=== PATIENT | female | born 1965 | race Caucasian/White ===

== ENCOUNTER 2021-08-15 10:31 | Emergency (ER) | payer OTHER, BC ==
--- NOTE | 2021-08-15 12:19 | EDM.PDOC ---
ED HPI GENERAL MEDICAL PROBLEM - General Chief Complaint: Lower Extremity Injury/Pain Stated Complaint: KNEE HURT AT WORK Time Seen by Provider: 08/15/21 10:42 Source of Information: Reports: Patient History Limitations: Reports: No Limitations - History of Present Illness INITIAL COMMENTS - FREE TEXT/NARRATIVE: HISTORY AND PHYSICAL: History of present illness: Patient is a 56-year-old female who presents emergency room today with concern of right knee injury that occurred yesterday while working. Patient states that she went outside and saw that there was a piece of cardboard on the ground that she was going to waste picker with her on the garbage. Patient states that she held onto the garbage in order to bend over and waste picker the piece of cardboard and states that she did not realize that the garbage was on wheels and was not stationary. Patient states that the garbage began moving and it caused her to slip and states that she landed directly on her right knee on the ground. Patient states that she did not injure any thing else and states that she did not hit her head or lose consciousness. Patient states that since then, she has hardly been able to bear weight on the knee due to pain. States that she has not taken any medications for her symptoms. Denies any other symptoms or concerns. Patient denies fever, chills, chest pain, shortness of breath, or cough. Denies headache, neck stiff ness, change in vision, syncope, or near syncope. Denies nausea, vomiting, abdominal pain, diarrhea, constipation, or dysuria. Has not noted any blood in urine or stool. Patient has been eating and drinking appropriately. Review of systems: As per history of present illness and below otherwise all systems reviewed and negative. Past medical history: As per history of present illness and as reviewed below otherwise noncontributory. Surgical history: As per history of present illness and as reviewed below otherwise noncontributory. Social history: See social history for further information Family history: As per history of present illness and as reviewed below otherwise noncontributory. Physical exam: General: Patient is alert, oriented, and in no acute distress. Patient sitting comfortably on exam table. Vitals stable and reviewed by me. HEENT: Atraumatic, normocephalic, pupils equal and reactive bilaterally, negative for conjunctival pallor or scleral icterus, mucous membranes moist, throat clear, neck supple, nontender, trachea midline. No drooling or trismus noted. No meningeal signs. No hot potato voice noted. Lungs: Clear to auscultation, breath sounds equal bilaterally, chest nontender. Heart: S1S2, regular rate and rhythm without overt murmur Abdomen: Soft, nondistended, nontender. Negative for masses or hepatosplenomegaly. Negative for costovertebral tenderness. Pelvis: Stable nontender. Genitourinary: Deferred. Rectal: Deferred. Skin: Intact, warm, dry. No lesions or rashes noted. Extremities: The right knee is moderately edematous without erythema, ecchymosis, or increase in warmth. Patient does have limited range of motion of the right knee due to pain. Patient does have full range of motion of the remainder right lower extremity. Dorsalis pedis posterior tibial pulses are grossly intact of the right lower extremity with capillary refill less than 2 seconds. All compartments are soft of the right lower extremity. Intact sensation to light and deep touch of the complete right lower extremity. Otherwise, atraumatic, negative for cords or calf pain. Neurovascular unremarkable. Neuro: Awake, alert, oriented. Cranial nerves II through XII unremarkable. Cerebellum unremarkable. Motor and sensory unremarkable throughout. Exam nonfocal. Medical Decision Making: Signs and symptoms that were prompt return to the ED thoroughly discussed with patient. Discussed importance for follow-up with an orthopedic provider. Voices understanding and is agreeable to plan of care. Denies any further questions or concerns at this time. Diagnostics: Right knee x-ray Therapeutics: Knee immobilizer and crutches Prescription: None Impression: Right knee injury Plan: 1. Rest, ice, elevate the affected extremity. You can apply ice 15 minutes on, 15 minutes off. Use the knee immobilizer and crutches until follow-up with an orthopedic provider. 2. Tylenol and/or Ibuprofen as directed for pain management or discomfort. 3. Follow up with the Orthopedic provider as discussed. Return to the ED as needed and as discussed. Definitive disposition and diagnosis as appropriate pending reevaluation and review of above. Right Knee Pain Score (Numeric/FACES): 10 - Related Data Allergies Allergy/AdvReac Type Severity Reaction Status Date / Time ACEINHIBITORS Allergy Cough Verified 03/16/14 08:28 [GARCIA Inhibitors] Sulfa (Sulfonamide Allergy Rash Verified 03/16/14 08:28 Antibiotics) Past Medical History Cardiovascular History: Reports: Hypertension Other Cardiovascular History: High blood pressure/heart problems Genitourinary History: Reports: Renal Disease Endocrine/Metabolic History: Reports: Diabetes, Type II - Infectious Disease History Infectious Disease History: Reports: Chicken Pox Social & Family History - Family History Family Medical History: No Pertinent Family History - Tobacco Use Tobacco Use Status *Q: Current Every Day Tobacco User Years of Tobacco use: 20 Packs/Tins Daily: 1 - Caffeine Use Caffeine Use: Reports: Coffee, Soda - Recreational Drug Use Recreational Drug Use: No Review of Systems - Review of Systems Review Of Systems: Comprehensive ROS is negative, except as noted in HPI. ED EXAM, GENERAL - Physical Exam Exam: See Below (See dictation) Course - Vital Signs Last Recorded V/S: Last Vital Signs Temp 97.3 F 08/15/21 11:49 Pulse 91 08/15/21 11:49 Resp 18 08/15/21 11:49 BP 176/68 H 08/15/21 11:49 Pulse Ox 95 08/15/21 11:49 - Orders/Labs/Meds Orders: Active Orders 24 hr Category Date Time Status DME for Discharge [COMM] Stat Oth 08/15/21 13:03 Ordered Departure - Departure Time of Disposition: 13:04 Disposition: Home, Self-Care 01 Clinical Impression: Knee injury - Discharge Information Referrals: Zuly Garcia NP [Primary Care Provider] - Forms: ED Department Discharge Additional Instructions: The following information is given to patients seen in the emergency department who are being discharged to home. This information is to outline your options for follow-up care. We provide all patients seen in our emergency department with a follow-up referral. The need for follow-up, as well as the timing and circumstances, are variable depending upon the specifics of your emergency department visit. If you don't have a primary care physician on staff, we will provide you with a referral. We always advise you to contact your personal physician following an emergency department visit to inform them of the circumstance of the visit and for follow-up with them and/or the need for any referrals to a consulting specialist. The emergency department will also refer you to a specialist when appropriate. This referral assures that you have the opportunity for follow-up care with a specialist. All of these measure are taken in an effort to provide you with optimal care, which includes your follow-up. Under all circumstances we always encourage you to contact your private physician who remains a resource for coordinating your care. When calling for follow-up care, please make the office aware that this follow-up is from your recent emergency room visit. If for any reason you are refused follow-up, please contact the [facility] Emergency Department at and asked to speak to the emergency department charge nurse. [facility] [address] [place] [id number] [address] [facility] [address] [place] [address], [address] [place] [address] 1. Rest, ice, elevate the affected extremity. You can apply ice 15 minutes on, 15 minutes off. Use the knee immobilizer and crutches until follow-up with an orthopedic provider. 2. Tylenol and/or Ibuprofen as directed for pain management or discomfort. 3. Follow up with the Orthopedic provider as discussed. Return to the ED as needed and as discussed. Sepsis Event Note (ED) - Evaluation Sepsis Screening Result: No Definite Risk - Focused Exam Vital Signs: Vital Signs Temp Pulse Resp BP Pulse Ox 08/15/21 11:49 97.3 F 91 18 176/68 H 95 - My Orders Last 24 Hours: My Active Orders 08/15/21 13:03 DME for Discharge [COMM] Stat - Assessment/Plan Last 24 Hours: My Active Orders 08/15/21 13:03 DME for Discharge [COMM] Stat
--- NOTE | 2021-08-15 13:01 | CR ---
Indication: Fall, injury, pain everywhere Comparison: None available. Technique: AP, lateral, and sunrise views right knee were obtained Findings: There is no displaced fracture or dislocation. There is mild tricompartmental degenerative change. There is marked suprapatellar joint effusion. Impression: Large suprapatellar joint effusion without evidence of definite displaced fracture. Dictated by Errol Jensen MD @ 08/15/2021 1:00:29 PM (Electronically Signed)
== END 2021-08-15 14:38 | disposition home or self-care (01) ==
LOC: MW.ED 10:31
DX: S89.91XA Unspecified injury of right lower leg, initial encounter (principal); I10 Essential (primary) hypertension; E11.9 Type 2 diabetes mellitus without complications; Z72.0 Tobacco use; Z88.8 Allergy status to other drugs, medicaments and biological substances; Z88.2 Allergy status to sulfonamides; W18.30XA Fall on same level, unspecified, initial encounter; Y92.89 Other specified places as the place of occurrence of the external cause; Y99.0 Civilian activity done for income or pay
CPT/HCPCS: 73562-26-RT; 73562-RT; 99283-25

== ENCOUNTER 2021-09-29 09:02 | Emergency (ER) | payer BC, OTHER ==
[2021-09-29] MEDS ORDERED: Ondansetron 4 MG Tab.DIS PO ONE (09:42)
[2021-09-29] MEDS ORDERED: Albuterol 8 GM Inhaler INH STA (09:43)
--- NOTE | 2021-09-29 09:45 | EDM.PDOC ---
ED HPI GENERAL MEDICAL PROBLEM - General Chief Complaint: General Stated Complaint: VOMITING BODY ACHES HEADACHES Time Seen by Provider: 09/29/21 09:05 - History of Present Illness INITIAL COMMENTS - FREE TEXT/NARRATIVE: History of present illness: [] Patient got sick 26 September 2021. She has muscle aches headache nausea vomiting diarrhea no appetite. Her urine function is normal. Her vomiting is 2 or 3 times a day. Her diarrhea is too many to count its liquid without blood. She feels short of breath with a cough as well. Symptoms are constant crescendoing gradually growing. Nothing makes them better or worse. Review of systems: As per history of present illness and below otherwise all systems reviewed and negative. Past medical history: As per history of present illness and as reviewed below otherwise nonco ntributory. Surgical history: As per history of present illness and as reviewed below otherwise noncontributory. Social history: No reported history of drug or alcohol abuse. Family history: As per history of present illness and as reviewed below otherwise noncontributory. Physical exam: Constitutional - well developed, well-nourished and in no acute distress HEENT - normocephalic, no evidence of trauma - external nose and mouth normal - no mass in neck and no JVD - mucosae dry EYES - full EOM, PERRL, no icterus - no evidence of inflammation, injection, or drainage Respiratory - no respiratory distress, equal bilateral expansion, lungs prolonged expiratory phase of respiration with wheezes throughout and rales in the right side. Cardiovascular - Regular Rhythm with S1 and S2 appreciated and no murmur, gallop or rub. GI - abdomen soft without distension or organomegaly - normal bowel sounds - no guard or rebound Musculoskeletal no gross deformity of long bones or joints - no tenderness, swelling or edema Neurologic - Alert and oriented times four - CN II-XII grossly intact - motor sensory and coordination symmetrically normal Psychiatric - appropriate mood and affect with normal thought content Hematologic - No petechiae or purpura - mucosa appropriate color and sclera not pale - normal nail bed color and refill Integument - no rash or evidence of trauma - normal turgor Diagnostics: [] Therapeutics: [] Impression: [] Plan: [] Definitive disposition and diagnosis as appropriate pending reevaluation and review of above. - Related Data Allergies Allergy/AdvReac Type Severity Reaction Status Date / Time ACEINHIBITORS Allergy Cough Verified 09/29/21 09:17 [GARCIA Inhibitors] Sulfa (Sulfonamide Allergy Rash Verified 09/29/21 09:17 Antibiotics) Home Meds: Home Meds predniSONE [Prednisone] 60 mg PO DAILY 4 Days #12 tablet 09/29/21 [Rx] Past Medical History - Past Health History Medical/Surgical History: Denies Medical/Surgical History Cardiovascular History: Reports: Hypertension Other Cardiovascular History: High blood pressure/heart problems Genitourinary History: Reports: Renal Disease Endocrine/Metabolic History: Reports: Diabetes, Type II - Infectious Disease History Infectious Disease History: Reports: Chicken Pox Social & Family History - Family History Family Medical History: No Pertinent Family History - Caffeine Use Caffeine Use: Reports: Coffee, Soda ED ROS GENERAL - Review of Systems Review Of Systems: Comprehensive ROS is negative, except as noted in HPI. ED EXAM, GENERAL - Physical Exam Exam: See Below Free Text/Narrative:: My physical exam is in the HPI Course - Vital Signs Last Recorded V/S: Last Vital Signs Temp 35.8 C L 09/29/21 09:17 Pulse 90 09/29/21 09:17 Resp 16 09/29/21 09:17 BP 136/55 L 09/29/21 09:17 Pulse Ox 93 L 09/29/21 09:17 - Orders/Labs/Meds Orders: Active Orders 24 hr Category Date Time Status RT Post Treatment Assessment [RC] Click to Edit Care 09/29/21 09:43 Active RT Pre-Treatment Assessment [RC] Click to Edit Care 09/29/21 09:43 Active Chest 1V Frontal [CR] Stat Exams 09/29/21 09:42 Taken Labs: Laboratory Tests 09/29/21 09/29/21 09/29/21 Range/Units 09:14 09:54 09:54 WBC 9.13 (4.0-11.0) K/uL RBC 4.58 (4.30-5.90) M/uL Hgb 12.6 (12.0-16.0) g/dL Hct 38.6 (36.0-46.0) % MCV 84.3 (80.0-98.0) fL MCH 27.5 (27.0-32.0) pg MCHC 32.6 (31.0-37.0) g/dL RDW Std Deviation 44.3 (28.0-62.0) fl RDW Coeff of Shadia 14 (11.0-15.0) % Plt Count 165 (150-400) K/uL MPV 10.80 (7.40-12.00) fL Neut % (Auto) 75.6 (48.0-80.0) % Lymph % (Auto) 17.2 (16.0-40.0) % [place] % (Auto) 7.0 (0.0-15.0) % Eos % (Auto) 0.1 (0.0-7.0) % Baso % (Auto) 0.1 (0.0-1.5) % Neut # (Auto) 6.9 H (1.4-5.7) K/uL Lymph # (Auto) 1.6 (0.6-2.4) K/uL [place] # (Auto) 0.6 (0.0-0.8) K/uL Eos # (Auto) 0.0 (0.0-0.7) K/uL Baso # (Auto) 0.0 (0.0-0.1) K/uL Nucleated RBC % 0.0 /100WBC Nucleated RBCs # 0 K/uL Sodium 138 (136-145) mmol/L Potassium 3.9 (3.5-5.1) mmol/L Chloride 103 (98-107) mmol/L Carbon Dioxide 22.9 (21.0-32.0) mmol/L BUN 41 H (7.0-18.0) mg/dL Creatinine 2.7 H (0.6-1.0) mg/dL Est Cr Clr Drug Dosing TNP Estimated GFR (MDRD) 18.2 ml/min Glucose 115 H (74-106) mg/dL Calcium 8.0 L (8.5-10.1) mg/dL Magnesium 1.8 (1.8-2.4) mg/dL Total Bilirubin 0.2 (0.2-1.0) mg/dL AST 21 (15-37) IU/L ALT 17 (14-63) IU/L Alkaline Phosphatase 84 (46-116) U/L Total Protein 6.4 (6.4-8.2) g/dL Albumin 2.5 L (3.4-5.0) g/dL Globulin 3.9 (2.6-4.0) g/dL Albumin/Globulin Ratio 0.6 L (0.9-1.6) Influenza Type A RNA NEGATIVE (NEGATIVE) Influenza Type B RNA NEGATIVE (NEGATIVE) SARS-CoV-2 RNA (JUAN CARLOS) POSITIVE H (NEGATIVE) Meds: Medications Discontinued Medications Generic Name Dose Route Start Last Admin Trade Name Khadra PRN Reason Stop Dose Admin Albuterol 8 gm 09/29/21 09:43 09/29/21 09:52 Albuterol 8 Gm Inhaler INH 09/29/21 09:44 8 gm ONETIME STA Administration Dexamethasone 10 mg 09/29/21 10:14 09/29/21 10:23 Dexamethasone 10 Mg/Ml Sdv IM 09/29/21 10:15 10 mg ONETIME ONE Administration Ondansetron HCl 4 mg 09/29/21 09:42 09/29/21 09:52 Ondansetron 4 Mg Tab.Dis PO 09/29/21 09:43 4 mg ONETIME ONE Administration Prednisone 60 mg 09/29/21 10:33 09/29/21 10:42 Prednisone 20 Mg Tab PO 09/29/21 10:34 60 mg ONETIME ONE Administration - Re-Assessments/Exams Free Text/Narrative Re-Assessment/Exam: 09/29/21 10:35 Patient is markedly improved after her inhalation therapy. The lungs are more clear. Sats 93% on room air. 09/29/21 10:44 X-ray shows infiltrate mostly on the right side. Departure - Departure Time of Disposition: 10:35 Disposition: Home, Self-Care 01 Condition: Good Clinical Impression: Pneumonia due to COVID-19 virus, Bronchospasm - Discharge Information Prescriptions: predniSONE [Prednisone] 60 mg PO DAILY 4 Days #12 tablet Instructions: COVID-19 Vaccine Information, COVID-19: Quarantine vs. Isolation - [facility] (09/14/2020), COVID-19: What to Do If You Are Sick- [facility] (12/13/2020) Referrals: Zuly Garcia NP [Primary Care Provider] - Forms: ED Department Discharge Additional Instructions: If your oxygen saturations are really low or you feel like you are dizzy or confused because you are having trouble breathing you should return. Your prescription was sent to [facility] and you were given a pill to take tomorrow morning. Start your prescription Friday. You are a candidate for monoclonal antibodies if you so choose. [facility] [address] [place] [id number] [facility] [address] [place] [id number] The following information is given to patients seen in the emergency department who are being discharged to home. This information is to outline your options for follow-up care. We provide all patients seen in our emergency department with a follow-up referral. The need for follow-up, as well as the timing and circumstances, are variable depending upon the specifics of your emergency department visit. If you don't have a primary care physician on staff, we will provide you with a referral. We always advise you to contact your personal physician following an emergency department visit to inform them of the circumstance of the visit and for follow-up with them and/or the need for any referrals to a consulting specialist. The emergency department will also refer you to a specialist when appropriate. This referral assures that you have the opportunity for follow-up care with a specialist. All of these measure are taken in an effort to provide you with optimal care, which includes your follow-up. Under all circumstances we always encourage you to contact your private physician who remains a resource for coordinating your care. When calling for follow-up care, please make the office aware that this follow-up is from your recent emergency room visit. If for any reason you are refused follow-up, please contact the [facility] Emergency Department at and asked to speak to the emergency department charge nurse. Sepsis Event Note (ED) - Evaluation Sepsis Screening Result: No Definite Risk - Focused Exam Vital Signs: Vital Signs Temp Pulse Resp BP Pulse Ox 09/29/21 09:17 35.8 C L 90 16 136/55 L 93 L - My Orders Last 24 Hours: My Active Orders 09/29/21 09:42 Chest 1V Frontal [CR] Stat 09/29/21 09:43 RT Post Treatment Assessment [RC] Click to Edit RT Pre-Treatment Assessment [RC] Click to Edit - Assessment/Plan Last 24 Hours: My Active Orders 09/29/21 09:42 Chest 1V Frontal [CR] Stat 09/29/21 09:43 RT Post Treatment Assessment [RC] Click to Edit RT Pre-Treatment Assessment [RC] Click to Edit
[2021-09-29 10:01] LABS: CORONAVIRUS COVID-19 NAA POSITIVE (NEGATIVE); INFLUENZA A NAA NEGATIVE (NEGATIVE); INFLUENZA B NAA NEGATIVE (NEGATIVE)
[2021-09-29] MEDS ORDERED: Dexamethasone 10 MG/ML SDV IM ONE (10:14)
[2021-09-29 10:24] LABS: BLOOD UREA NITROGEN,BUN 41 mg/dL (7.0-18.0); CARBON DIOXIDE,CO2 22.9 mmol/L (21.0-32.0); CHLORIDE,CL 103 mmol/L (98-107); GLUCOSE RANDOM 115 mg/dL (74-106); POTASSIUM,K 3.9 mmol/L (3.5-5.1); SODIUM,NA 138 mmol/L (136-145)
[2021-09-29] MEDS ORDERED: predniSONE 20 MG Tab PO ONE (10:33)
--- NOTE | 2021-09-29 10:58 | CR ---
Indication: Shortness of breath. Cough. COVID positive. Technique: Chest one view. Comparison: 12/09/2018. Findings: Heart size and pulmonary vasculature within normal limits. There is a right upper lung zone infiltrate, which is new from 11/2018. This is suspicious for pneumonia. Imaging findings are not typical for COVID-19 pneumonia, but given the history, this is not excluded. The central airway is normal. The osseous structures are intact. There is no sizable pleural effusion. Impression: 1. New infiltrate in the right upper lung zone, when compared with 11/2018. 2. Pneumonia is suspected. Radiographic follow-up is advised to document resolution. Dictated by Harpal Brennan MD @ 09/29/2021 10:57:37 AM (Electronically Signed)
== END 2021-09-29 11:03 | disposition home or self-care (01) ==
LOC: MW.ED 09:02
DX: U07.1 COVID-19 (principal); J12.82 Pneumonia due to coronavirus disease 2019; J98.01 Acute bronchospasm; E78.00 Pure hypercholesterolemia, unspecified; I10 Essential (primary) hypertension; E11.9 Type 2 diabetes mellitus without complications; Z88.8 Allergy status to other drugs, medicaments and biological substances
CPT/HCPCS: 0240U; 36415; 71045; 80053; 83735; 85025; 96372; 99284; A9270; J1100

== ENCOUNTER 2023-09-01 12:34 | Emergency (ER) | payer BC ==
[2023-09-01] MEDS ORDERED: Acetaminophen 500 MG Tab PO ONE (15:43)
== END 2023-09-01 16:00 | disposition home or self-care (01) ==
LOC: MW.ED 12:34
DX: S93.402A Sprain of unspecified ligament of left ankle, initial encounter (principal); I10 Essential (primary) hypertension; E11.9 Type 2 diabetes mellitus without complications; Z88.2 Allergy status to sulfonamides; Z79.899 Other long term (current) drug therapy; Z88.8 Allergy status to other drugs, medicaments and biological substances; W19.XXXA Unspecified fall, initial encounter
CPT/HCPCS: 73610; 73630; 99283; A9270